=== PATIENT | female | born 1970 | race Two or more races ===

== ENCOUNTER 2023-09-11 12:49 | Emergency (ER) | payer OTHER ==
[~2023-09-11] VITALS: Ht 154.9 cm; Wt 65.8 kg
[2023-09-11] MEDS ORDERED: KETOROLAC TROMETHAMINE 30 MG VIAL IM STA (15:19)
== END 2023-09-11 16:47 | disposition home or self-care (01) ==
LOC: ER 12:49
DX: M25.562 Pain in left knee (principal)